=== PATIENT | female | born 1985 | race Caucasian/White ===

== ENCOUNTER → 2018-09-20 | Outpatient (CLI) | payer OTHER ==
--- NOTE | 2018-09-20 12:06 | CT ---
EXAM DESCRIPTION: Abdomen/Pelvis w/Contrast: Computed Tomography. CLINICAL HISTORY: RIGHT LOWER QUADRANT PAIN COMPARISON: None. TECHNIQUE: Spiral-axial scans at 5 x 5 mm intervals through the abdomen and pelvis, after nonionic IV contrast without oral contrast. Coronal and sagittal 2.0 mm reconstructions. Delayed scans, liver through the pelvis. Axial-spiral 5mm. No adverse reactions. Total Exam DLP: 872.21 mGy-cm. This exam was performed according to our departmental dose-optimization program which includes automated exposure control, adjustment of the mA and/or kV according to patient size and/or use of iterative reconstruction technique; to reduce radiation dose to as low as reasonably achievable (ALARA). FINDINGS: Lung bases and pleura: Negative. Liver, Stomach, Spleen, Adrenal Glands: Unremarkable. Pancreas, Gallbladder, Ducts: Slightly prominent but no pancreatic duct dilation. Kidneys and Ureters: Negative. Mesentery: No free fluid in the pelvis. No free air or ascites in the upper abdomen. Aorta: Unremarkable. Small Bowel: Negative. Terminal Ileum/Cecum: Normal caliber of the terminal ileum. Cecum distended by fecal matter and located in the midline mid pelvis. Appendix not seen. Colon: Fecal matter abundant from the cecum to the distal transverse colon with minimal colonic distention and no air-fluid levels. Pelvic Organs: Large amount of fluid in the cul-de-sac. Normal position of the uterus. Bilateral ovaries visualized with follicles. Heterogeneous enhancement and minimal lobulation of the lower uterine segment and cervix. No adnexal calcifications. Spine and Bony Pelvis: Minimal spondylosis in the lower thoracic spine. Bony pelvis and hips unremarkable. Abdominal Wall/Back Soft Tissues: Minimal diastases at the umbilicus but no bowel hernia. IMPRESSION: Moderate fluid in the pelvis and in the cul-de-sac surrounding the uterus and ovaries and small bowel in the pelvis and abutting the cecum. Follicles are seen in the ovaries. Lower uterine segment and cervix with lobulated contours. Normal position of the uterine fundus. This could possibly represent a ruptured ovarian cyst. Consider follow-up pelvic ultrasound. Minimal diastases at the umbilicus but no bowel hernia. Constipation proximal and mid colon. Electronically signed by: Taco Damian MD 09/20/2018 12:04 PM TILE DESIGNER
== END ==
LOC: LAB.O 10:03
PROVIDERS: ATTEND Nurse Practitioner Family
DX: R10.31 Right lower quadrant pain (principal); R18.8 Other ascites; K59.00 Constipation, unspecified